=== PATIENT | female | born 1985 | race Caucasian/White ===

== ENCOUNTER → 2024-04-22 13:05 | Outpatient (CLI) | payer BC, SELFPAY ==
--- NOTE | 2024-04-22 13:11 | DI.US.S_ITS ---
PROCEDURE: US PERIPH VENOUS LOW EXTREM RT INDICATIONS: RIGHT CALF PAIN. HISTORY OF DVT. FACTOR V. TECHNIQUE: Real-time imaging, as well as color and pulse Doppler interrogation, were performed of the lower extremity deep veins from the inguinal ligament to the popliteal fossa, with documentation of the visualized calf veins. COMPARISON: None. FINDINGS: The common femoral, femoral, popliteal, and the visualized calf veins are normally compressible, and free of intraluminal thrombus. Color and pulse Doppler demonstrate normal phasic intraluminal flow. There is normal augmentation response to distal compression maneuver. Superficial thrombosis of the small saphenous vein and other superficial vessels. IMPRESSION: No findings of lower extremity deep venous thrombosis. Superficial thrombosis of the small saphenous vein and other superficial vessels of the calf. Dictated by: Bart Reyna M.D. on 04/22/2024 at 14:49 Approved by: Bart Reyna M.D. on 04/22/2024 at 14:49
== END ==
PROVIDERS: Referring Provider Nurse Practitioner; Visit Provider Nurse Practitioner
DX: I82.811 Embolism and thrombosis of superficial veins of right lower extremity (principal); I83.93 Asymptomatic varicose veins of bilateral lower extremities; M79.661 Pain in right lower leg; D68.51 Activated protein C resistance; Z86.718 Personal history of other venous thrombosis and embolism
CPT/HCPCS: 93971

== ENCOUNTER → 2024-07-08 13:58 | Outpatient (CLI) | payer BC, SELFPAY ==
--- NOTE | 2024-07-08 14:00 | DI.US.S_ITS ---
PROCEDURE: US PELVIC COMPLETE INDICATIONS: PELVIC PAIN TECHNIQUE: Real-time scanning was performed of the pelvic organs, with image documentation. Additional endovaginal scanning was necessary due to incomplete visualization of the adnexal and endometrial structures by transabdominal scanning. COMPARISON: None. FINDINGS: Uterus: Uterus is anteverted and normal in size at 8.5 x 4.8 x 5.2 cm. The myometrium is homogeneous. The endometrium measures 6 mm combined thickness. Intrauterine device in good position. Right posterior intramural fibroid 3.0 x 2.8 x 2.6 cm Ovaries: The right ovary measures 3.7 x 1.8 x 2.6 cm, with a calculated ovarian volume of 9.0 cc. The left ovary measures 3.6 x 1.7 x 1.9 cm, with a calculated ovarian volume of 6.0 cc. The ovaries have a normal sonographic appearance. Less than 12 follicles can be seen in each ovary. No adnexal masses are seen. Other: No pathologic free abdominal or pelvic fluid. IMPRESSION: Intrauterine device in good position. Right-sided uterine fibroid. Approved by: Arnav Lewis M.D. on 07/08/2024 at 18:32
== END ==
LOC: US 13:59
PROVIDERS: PCP Family Medicine; Referring Provider Family Medicine; Visit Provider Family Medicine
DX: E28.2 Polycystic ovarian syndrome (principal); D25.1 Intramural leiomyoma of uterus; R10.32 Left lower quadrant pain; R10.2 Pelvic and perineal pain; Z97.5 Presence of (intrauterine) contraceptive device
CPT/HCPCS: 76830; 76856; 93976